=== PATIENT | male | born 2005 | race Caucasian/White ===

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

== ENCOUNTER 2024-08-19 23:20 | Emergency (ER) | payer MEDICAID ==
[~2024-08-19] VITALS: Ht 172.7 cm; Wt 54.5 kg
[2024-08-20] MEDS: ondansetron 4mg rapidly disintigrating tab PO ONE (00:33)
[2024-08-20] MEDS: amox tr/potassium clavulanate 875/125mg TAB PO ONE (00:33)
[2024-08-20] MEDS ORDERED: AMOX-419 PO (00:47)
[2024-08-20 00:55] VITALS: BP 104/63; PULSE 90; RESP 18; TEMP 98.6; O2SAT 99
== END 2024-08-20 00:51 | disposition home or self-care (01) ==
LOC: ER 23:21
DX: S01.01XA Laceration without foreign body of scalp, initial encounter (principal); Z88.5 Allergy status to narcotic agent; Z79.899 Other long term (current) drug therapy; Y04.1XXA Assault by human bite, initial encounter; Y93.89 Activity, other specified; Y92.89 Other specified places as the place of occurrence of the external cause; Y99.8 Other external cause status
CPT/HCPCS: 12001; 99283; J7030; A6449

== ENCOUNTER 2024-11-04 04:49 | Emergency (ER) | payer MEDICAID ==
[~2024-11-04] VITALS: Ht 172.7 cm; Wt 50.0 kg
[2024-11-04 04:55] VITALS: BP 118/73; PULSE 120; RESP 18; TEMP 98.2; O2SAT 100
== END 2024-11-04 06:02 ==
LOC: ER 04:49
DX: F10.129 Alcohol abuse with intoxication, unspecified (principal); Z88.5 Allergy status to narcotic agent; Z79.899 Other long term (current) drug therapy; Y90.9 Presence of alcohol in blood, level not specified
CPT/HCPCS: 99283